=== PATIENT | male | born 1970 | race Caucasian/White ===

== ENCOUNTER 2019-11-01 06:46 | Inpatient (IN) | payer BC ==
[~2019-11-01] VITALS: Ht 182.9 cm; Wt 98.4 kg
--- NOTE | 2019-11-01 07:10 | NUR ---
BIB [facility] FOR C/O SEVERE LOWER BACK PAIN. DENIES TRAUMA. TO ER BED 12, PLACED ON PRONE POSITION AT POSITION OF COMFORT, HOOKED TO MONITOR, PROVIDED W WARM BLANKET, AOx 44, BREATHING EVEN AND UNLABORED, NAD NOTED. AWAITING MD JOHNSTON
--- NOTE | 2019-11-01 07:11 | NUR ---
DR GREENBERG AT BEDSIDE
[2019-11-01] MEDS ORDERED: KETOROLAC TROMETHAMINE INJ 30 MG/ML VIAL IM ONE (07:30)
[2019-11-01] MEDS ORDERED: ONDANSETRON 4 MG TAB.RAPDIS SL ONE (07:30)
[2019-11-01] MEDS ORDERED: HYDROMORPHONE 1 MG/1 ML DISP.SYRIN IM ONE ×2 (07:30→09:00)
[2019-11-01] MEDS ORDERED: KETOROLAC TROMETHAMINE INJ 30 MG/ML VIAL ONE ×2 (07:32→07:39)
[2019-11-01] MEDS ORDERED: HYDROMORPHONE 1 MG/1 ML DISP.SYRIN ONE ×3 (07:32→10:06)
[2019-11-01] MEDS ORDERED: ONDANSETRON 4 MG TAB.RAPDIS ONE (07:32)
--- NOTE | 2019-11-01 09:00 | NUR ---
PATIENT STILL ON 8/10 PS AFTER 1ST DOSE OF DILAUDID. MADE MD AWARE.
[2019-11-01 10:00] LABS: BASOPHILS % (AUTO) 0.4 % (0.0-2.0); EOSINOPHILS % (AUTO) 0.9 % (0.0-6.0); HEMATOCRIT 44 % (39-51); HEMOGLOBIN 15.2 g/dL (13.5-17.5); LYMPHOCYTES # (AUTO) 1.7 /CMM (0.8-4.8); LYMPHOCYTES % (AUTO) 31.5 % (20.0-44.0); MEAN CORPUSCULAR HGB CONC 34 g/dl (31.0-36.0); MEAN CORPUSCULAR VOLUME 94 fL (80-96); MONOCYTES # (AUTO) 0.4 /CMM (0.1-1.30); MONOCYTES % (AUTO) 7.3 % (2.0-12.0); NEUTROPHILS # (AUTO) 3.2 /CMM (1.8-8.9); NEUTROPHILS % (AUTO) 59.9 % (43.0-81.0); PLATELET COUNT (AUTO) 253 /CMM (150-450); RED BLOOD CELL COUNT(AUTO) 4.72 MIL/uL (4.5-6.0); WHITE BLOOD COUNT (AUTO) 5.3 K/uL (4.3-11.0)
--- NOTE | 2019-11-01 10:02 | NUR ---
MOVE SHEET TURNED IN
[2019-11-01 10:08] LABS: CALCIUM, SERUM 9.4 mg/dL (8.5-10.1); CREATININE 0.8 mg/dL (0.6-1.3); POTASSIUM 3.9 mmol/L (3.5-5.1)
--- NOTE | 2019-11-01 10:13 | NUR ---
PATIENT STILL ON 05/19 PS, MADE MD AWARE, VERBAL ORDER OF DILAUDID 1MG IVP RECEIVED. CARRIED OUT.
--- NOTE | 2019-11-01 10:27 | NUR ---
wheeled out via rney for ct scan
[2019-11-01] MEDS ORDERED: HYDROMORPHONE 1 MG/1 ML DISP.SYRIN IV ONE (11:00)
--- NOTE | 2019-11-01 13:20 | NUR ---
GOT BED 208-1
--- NOTE | 2019-11-01 13:26 | NUR ---
REPORT GIVEN TO CAMRYN BOUDREAUX FOR CLAUDIO
--- NOTE | 2019-11-01 14:20 | NUR ---
RN MS NOTES RECEIVED PT FROM E.R. STAFF VIA ADALID, PT IS AWAKE, ALERT AND ORIENTED, PREFERS TO LIE PRONE IN BED AT THIS TIME, STATED THAT IF HE MOVES THE PAIN WILL BE WORSE, ACCOMPANIED BY OTIS, ASSISTED PT TO BED, MADE COMFORTABLE, ROOM SET UP ORIENTATION PROVIDED TO PT, VERBALIZED UNDERSTANDING, AWAITING ADMITTING ORDERS FROM .
[2019-11-01] MEDS: HYDROMORPHONE INJ 2 MG/ML DISP.SYRIN IV PRN ×3 (15:48→23:15)
[2019-11-01] MEDS ORDERED: Z GUARD REMEDY 2 OZ OINT TP PRN (16:00)
[2019-11-01] MEDS ORDERED: ACETAMINOPHEN 325 MG TABLET PO PRN (16:00)
[2019-11-01] MEDS ORDERED: HYDROCODONE/APAP 5/325MG 1 EACH TABLET PO PRN (16:00)
[2019-11-01] MEDS ORDERED: HYDROMORPHONE INJ 2 MG/ML DISP.SYRIN IV PRN (16:00)
[2019-11-01] MEDS ORDERED: MAGNESIUM HYDROXIDE 30 ML UDC PO PRN (16:00)
[2019-11-01] MEDS ORDERED: MAG HYDROX/AL HYDROX/SIMETH 30 ML UDC PO PRN (16:00)
[2019-11-01] MEDS ORDERED: ONDANSETRON HCL/PF 4 MG/2 ML VIAL IVP PRN (16:00)
[2019-11-01] MEDS: methylPREDNISolone SOD SUCC 125 MG/2ML VIAL IV SCH ×3 (17:00→20:08)
--- NOTE | 2019-11-01 17:00 | NUR ---
RN MS NOTES SOLUMEDROL ADMINISTERED ORDERED.
[2019-11-01] MEDS: METHOCARBAMOL (500MG) 500 MG TABLET PO SCH ×2 (17:50→23:15)
--- NOTE | 2019-11-01 18:33 | NUR ---
RN MS NOTES PT IN BED, PAIN MEDS GIVEN ORDERED, COMFORTABLE AT THIS TIME, AT BEDSIDE, SEEN BY DR. FOLEY, NEW ORDERS GIVEN, PLAN OF CARE DISCUSSED WITH PT AND , VERBALIZED UNDERSTANDING, DR. NOBLES WILL REFER PT TO A PAY STATION COLLECTOR ON DISCHARGE PER PT'S INSURANCE COVERAGE, KEPT PT COMFORTABLE, NEEDS ATTENDED.
[2019-11-01] MEDS: KETOROLAC TROMETHAMINE INJ 30 MG/ML VIAL IV SCH (19:06)
[2019-11-01 22:44] VITALS: BP 113/74
[2019-11-02] MEDS ORDERED: KETOROLAC TROMETHAMINE INJ 30 MG/ML VIAL ONE (02:22)
[2019-11-02] MEDS: KETOROLAC TROMETHAMINE INJ 30 MG/ML VIAL IV SCH ×3 (02:28→16:33)
[2019-11-02] MEDS: HYDROMORPHONE INJ 2 MG/ML DISP.SYRIN IV PRN ×5 (03:24→22:13)
[2019-11-02] MEDS: METHOCARBAMOL (500MG) 500 MG TABLET PO SCH ×3 (06:21→17:24)
[2019-11-02 06:26] LABS: BASOPHILS % (AUTO) 0.1 % (0.0-2.0); HEMATOCRIT 43 % (39-51); HEMOGLOBIN 14.7 g/dL (13.5-17.5); LYMPHOCYTES # (AUTO) 0.8 /CMM (0.8-4.8); LYMPHOCYTES % (AUTO) 13.4 % (20.0-44.0); MEAN CORPUSCULAR HGB CONC 34 g/dl (31.0-36.0); MEAN CORPUSCULAR VOLUME 92 fL (80-96); MONOCYTES % (AUTO) 0.6 % (2.0-12.0); NEUTROPHILS % (AUTO) 85.9 % (43.0-81.0); PLATELET COUNT (AUTO) 263 /CMM (150-450); RED BLOOD CELL COUNT(AUTO) 4.67 MIL/uL (4.5-6.0); WHITE BLOOD COUNT (AUTO) 5.8 K/uL (4.3-11.0)
[2019-11-02 06:34] LABS: CREATININE 0.8 mg/dL (0.6-1.3); MAGNESIUM 1.9 mg/dL (1.8-2.4); PHOSPHORUS 4.8 mg/dL (2.5-4.9); POTASSIUM 4.3 mmol/L (3.5-5.1)
--- NOTE | 2019-11-02 07:10 | NUR ---
MS RN OPENING NOTES RECEIVED PATIENT IN BED ASLEEP, AROUSABLE TO VERBAL AND TACTILE STIMULI. NO SOB. DENIES ANY C/O PAIN NOR DISCOMFORT AT THIS TIME. AT BEDSIDE. RT HAND # 18 SL INTACT AND PATENT. BED IN LOWEST POSITION, LOCKED. BED ALARM ON. CALL LIGHT WITHIN REACH.
[2019-11-02 08:00] VITALS: BP 100/53
[2019-11-02] MEDS: methylPREDNISolone SOD SUCC 125 MG/2ML VIAL IV SCH ×4 (09:06→20:30)
[2019-11-02] MEDS: HYDROCODONE/APAP 10/325MG 1 EA TABLET PO PRN ×2 (10:02→16:25)
[2019-11-02 16:00] VITALS: BP 112/64
--- NOTE | 2019-11-02 19:14 | NUR ---
MS RN CLOSING NOTES PATIENT RESTING COMFORTABLY IN BED. NO SOB. PAIN MED GIVEN ORDERED. AT BEDSIDE. RT HAND # 18 SL INTACT AND PATENT. PATIENT PREFERS TO BE IN PRONE POSITION BECAUSE IT ALLEVIATES BACK PAIN. AWAITING FOR [facility] ACCEPTANCE FOR PAIN MANAGEMENT. BED IN LOWEST POSITION, LOCKED. BED ALARM ON. CALL LIGHT WITHIN REACH. IN NO APPARENT DISTRESS.
--- NOTE | 2019-11-02 19:30 | NUR ---
[employer]REET[employer] REPAIRER HELPER: MET WITH PT AND PT'S AT BED SIDE. PT IS A/O X4, ON RA RESPIRATIONS EVEN AND UNLABORED. STATED PT'S PAIN WENT DOWN TO 7-8/10 AFTER DILAUDID IV. PT UNABLE TO GET UP, AMBULATE DUE TO SEVERE PAIN ON HIS BACK, UNABLE TO PERFORM MOST OF ADLS DUE TO INTRACTABLE PAIN. SEEN BY PAIN MD, AND HOSPITALIST. AWAITING TRANSFER TO [facility] FOR HLOC. IV ACCESS PATENT AND FLUSHING WELL, ON HL. DISCUSSED PLAN OF CARE, ANSWER QUESTIONS/CONCERNS BASED ON PLAN OF CARE OF MD AND LATEST IMAGING/LAB RESULT, AND MEDICATION ORDERS. SAFETY PRECAUTIONS FOR FALL INITIATED, URINAL AND CALL LIGHT WITHIN REACH, WILL CONTINUE MONITORING PT.
[2019-11-02 20:00] VITALS: BP 101/63
--- NOTE | 2019-11-02 22:19 | NUR ---
PRN DILAUDID: PT C/O 05/19 CHRONIC UPPER AND LOWER BACK PAIN REQUESTING FOR HIS DILAUDID IV. PRN DILAUDID 2MG IVP ADMINISTERED TO PT AT THIS TIME. EDUCATION PROVIDED REGARDING MEDICATION MIRI EFFECT AND ACTIONS.
[2019-11-02 23:07] VITALS: BP 101/46
[2019-11-02] MEDS: ZOLPIDEM TARTRATE 5 MG TABLET PO PRN (23:08)
--- NOTE | 2019-11-02 23:12 | NUR ---
PRN AMBIEN: PT REPORTED HE REALLY WANTS TO SLEEP, BUT UNABLE TO SLEEP, ONLY 15MINS THEN WOKE UP IN PAIN, DESPITE GIVING ALL PRN PAIN MEDS AND SCHEDULE PAIN MEDS ORDERED. PT REQUESTING FOR SLEEPING AID, VS TAKEN AND RECORDED. PRIOR TO ADMINISTERING MEDICATIONS. PRN AMBIEN 5MG TAB PO ADMINISTERED TO PT AT THIS TIME. WILL CONTINUE TO MONITOR AND REASSESS PT.
[2019-11-03] MEDS: METHOCARBAMOL (500MG) 500 MG TABLET PO SCH ×5 (00:15→23:16)
--- NOTE | 2019-11-03 01:29 | NUR ---
RN NOTES: WENT OT PT'S ROOM, PT HAS SCHEDULED TORADOL FOR 0130AM, PT FOUND TO BE SLEEPING, SNORING LOUDLY, AT BED SIDE, PER TO LET PT SLEEP FOR NOW AND SHE WILL CALL ONCE PT WAKES UP.
[2019-11-03] MEDS: KETOROLAC TROMETHAMINE INJ 30 MG/ML VIAL IV SCH ×4 (01:30→17:17)
--- NOTE | 2019-11-03 02:20 | NUR ---
RN NOTES: CAME STATED TO PREPARE THE PAIN MEDICATION, STATING HIS HAS LIKE 7-8/ OUT OF 10 PAIN. TOOK THE MEDS FROM [employer]. UPON GETTING TO THE ROOM, PT WAS SLEEPING AND SNORING STILL, TRIED TO WAKE UP PT BUT VERY DROWSY ONE YES VERY LITTLE, AND WENT BACK TO SLEEP. EXPLAINED TO RN CANNOT ADMINISTER THE MEDICATION IF PT IS SLEEPING. UNDERSTAND, STATED SHE WILL JUST CALL ME AGAIN ONCE MORE AWAKE.
[2019-11-03 05:30] VITALS: BP 101/55
[2019-11-03] MEDS: HYDROMORPHONE INJ 2 MG/ML DISP.SYRIN IV PRN ×3 (05:46→20:08)
--- NOTE | 2019-11-03 05:46 | NUR ---
PRN DILAUDID: PT C/O 05/19 LOWER BACK PAIN REQUESTING FOR DILAUDID, PRN DILAUDID 2MG IVP ADMINISTERED TO PT AT THIS TIME. WILL CONTINUE TO MONITOR AND REASSESS
--- NOTE | 2019-11-03 06:58 | NUR ---
END OF SHIFT SUMMARY: PRN PAIN MEDICATIONS ADMINISTERED ORDERED AND PER PT'S REQUEST. AWAITING FOR [facility] AUTHORIZATION NUMBER. IV ACCESS REMAINS PATENT AND FLUSHING WELL, ON HL. NO S/S OF IV INFILTRATION NOTED. VS REMAINS STABLE, NEEDS ATTENDED. SAFETY PRECAUTIONS FOR FALL REMAINS ENGAGED,CALL LIGHT IN REACH, WILL ENDORSE TO DAY RN FOR CONTINUITY OF CARE.
--- NOTE | 2019-11-03 07:00 | NUR ---
MS RN OPENING NOTES RECEIVED PATIENT IN BED LEFT SIDE LYING POSITION WATCHING ON TABLET. NO S/S OF RESPIRATORY DISTRESS. DENIES ANY C/O PAIN NOR DISCOMFORT AT THIS TIME. AT BEDSIDE. LT HAND # 18 SL INTACT AND PATENT. BED IN LOWEST POSITION, LOCKED. BED ALARM ON. CALL LIGHT WITHIN REACH.
[2019-11-03 07:30] VITALS: BP 102/54
[2019-11-03] MEDS: HYDROCODONE/APAP 10/325MG 1 EA TABLET PO PRN ×3 (07:42→23:17)
[2019-11-03] MEDS: methylPREDNISolone SOD SUCC 125 MG/2ML VIAL IV SCH ×4 (09:05→20:08)
--- NOTE | 2019-11-03 13:22 | NUR ---
MS RN NOTES RECEIVED CALL FROM RAPHAEL FROM [facility] DEPT OF PLACEMENT, PER RAPHAEL, " THEY MAY HAVE POSSIBLY HAVE A BED FOR PATIENT." TRANSFER CENTER WILL CONTACT [facility] AND PER RAPHAEL CM WILL ARRANGE TRANSPORTATION. CALLED CM AND SPOKE TO BARBARA AND MADE AWARE.
[2019-11-03] MEDS: DOCUSATE SODIUM LIQ 100 MG/10 ML UDC NG SCH (13:49)
--- NOTE | 2019-11-03 19:10 | NUR ---
MS RN NOTES PATIENT IN BED WATCHING ON TABLET WITH WITH AT BEDSIDE. PATIENT REMAINS STABLE AT THIS TIME. STILL AWAITING FOR BED AVAILABILITY FROM [facility].
[2019-11-03 20:00] VITALS: BP 109/52
[2019-11-03] MEDS: ZOLPIDEM TARTRATE 5 MG TABLET PO PRN (22:19)
[2019-11-04] MEDS: KETOROLAC TROMETHAMINE INJ 30 MG/ML VIAL IV SCH ×3 (00:55→16:31)
[2019-11-04] MEDS ORDERED: METHOCARBAMOL (500MG) 500 MG TABLET ONE (06:38)
[2019-11-04] MEDS: METHOCARBAMOL (500MG) 500 MG TABLET PO SCH ×3 (06:42→17:58)
--- NOTE | 2019-11-04 06:47 | NUR ---
MS RN NOTES ROBAXIN 1000MG TAB GIVEN ORDERED. MEDICATION TAKEN FROM MS 3 PYXIS DUE TO MEDICATION NOT AVAILABLE IN MS2 PYXIS. CHARGE NURSE AWARE.
--- NOTE | 2019-11-04 07:25 | NUR ---
MS RN CLOSING NOTES PATIENT REMAINS ASLEEP IN BED, AROUSABLE TO VERBAL AND TACTILE STIMULI. NO S/S OF RESPIRATORY DISTRESS. DENIES ANY C/O PAIN NOR DISCOMFORT AT THIS TIME. AT BEDSIDE. PATIENT STILL EXHIBITS PAIN DESPITE OF PAIN MEDICATION. MONITORED ACCORDINGLY. LT HAND # 18 SL INTACT AND PATENT. BED IN LOWEST POSITION, LOCKED. BED ALARM ON. CALL LIGHT WITHIN REACH. IN NO APPARENT DISTRESS.
--- NOTE | 2019-11-04 07:31 | NUR ---
MS RN OPENING NOTES RECEIVED PATIENT AWAKE IN BED IN NO ACUTE SIGN OF DISTRESS. AT BEDSIDE. A/O X4, ABLE TO MAKE NEEDS KNOWN, VERBALIZED THAT PAIN IS TOLERABLE AT THIS TIME. ON ROOM AIR, BREATHING EVEN AND UNLABORED. LT HAND # 18 SL INTACT AND PATENT. BED IN LOWEST POSITION AND LOCKED WITH SR UP X2. BED ALARM ON. CALL LIGHT WITHIN REACH. WILL CONTINUE TO MONITOR .
[2019-11-04 08:00] VITALS: BP 113/73
[2019-11-04] MEDS: methylPREDNISolone SOD SUCC 125 MG/2ML VIAL IV SCH ×3 (08:22→16:30)
[2019-11-04] MEDS: DOCUSATE SODIUM LIQ 100 MG/10 ML UDC NG SCH (08:22)
[2019-11-04] MEDS ORDERED: METH500T6 PO (09:12)
[2019-11-04] MEDS ORDERED: IBUP-1958 PO (09:12)
[2019-11-04] MEDS ORDERED: PRED50TA PO ×2 (09:12→12:40)
[2019-11-04] MEDS ORDERED: HYDR-4354 PO ×2 (09:12→12:40)
--- NOTE | 2019-11-04 12:01 | NUR ---
RN NOTES RECEIVED CALL FROM KANIKA ZARAGOZA FROM [facility] TRANSFER CENTER, [facility] THAT PT HAS BED AVAILABLE ALREADY. PT WILL BE IN UNIT 4MN ROOM 4448. [facility]CANO INFORMED AND ARRANGED TRANSPORTATION FOR 1700 PICK-UP. CALLED UNIT 4MN AT TEL # IS [phone] AND REPORT GIVEN TO KANIKA JIN. PT'S AT BEDSIDE AND MADE AWARE OF PT'S TRANSFER.
[2019-11-04] MEDS ORDERED: METH-406 PO (12:40)
[2019-11-04] MEDS ORDERED: IBUP-1957 PO (12:40)
[2019-11-04] MEDS: HYDROMORPHONE INJ 2 MG/ML DISP.SYRIN IV PRN (14:30)
--- NOTE | 2019-11-04 14:33 | NUR ---
RN NOTES/PAIN MANAGEMENT PT IN BED AND C/O LOWER BACK PAIN WITH SCALE OF 8/10. PRN DILAUDID 2MG/1ML IVP ADMINISTERED AT 1430. WILL CONTINUE TO MONITOR AND REASSESS PT.
--- NOTE | 2019-11-04 19:20 | NUR ---
MS/RN NOTES RECEIVED PT. LYING IN BED. PT. IS RESTING, EASILY AROUSABLE TO NAME. AWAKE, ALERT AND ORIENTED X4. BREATHING EVEN AND UNLABORED ON ROOM AIR. NO SOB, RESPIRATORY DISTRESS OR COMPLAINTS OF PAIN NOTED AT THIS TIME. PT. WITH LEFT HAND 18 GAUGE IV SALINE LOCK PRESENT, PATENT AND INTACT. PT. PRESENT AT BEDSIDE. PER DAYSHIFT NURSE PT. IS PENDING DISCHARGE TO [facility] FOR HIGHER LEVEL OF CARE. PER DAYSHIFT NURSE PT. DISCHARGE PAPERWORK, EXIT CARE AND BELONGINGS LIST COMPLETED AND SIGNED. ORIGINALS PLACED IN PT. CHART. PER DAYSHIFT NURSE PICKUP TIME 1900. BED LOCKED AND IN LOWEST POSITION, SIDE RAILS UP X2, CALL LIGHT WITHIN REACH, WILL CONTINUE TO MONITOR.
--- NOTE | 2019-11-04 19:26 | NUR ---
MS RN CLOSING NOTES PATIENT ASLEEP IN BED AT THIS TIME, EASILY AROUSABLE. AT BEDSIDE. PT IS A/O X4. ABLE TO MAKE NEEDS KNOWN. ON ROOM AIR, TOLERATING WELL WITH NO ACUTE RESPIRATORY DISTRESS NOTED THROUGHOUT THE DAY. LT HAND # 18 SL INTACT AND PATENT. BED IN LOWEST POSITION, LOCKED. BED ALARM ON. CALL LIGHT WITHIN REACH. ALL NEEDS AND CARE ATTENDED WELL. PT FOR DISCHARGE TONIGHT TO [facility]. PER [facility]UDY TOSCANO, TRANSPORT IS DELAYED. AT BEDSIDE INFORMED. ENDORSED TO FACT CHECKER NURSE JOSE ALFREDO.
[2019-11-04 20:00] VITALS: BP 124/65
--- NOTE | 2019-11-04 20:01 | NUR ---
MS/RN NOTES PT. IS LYING IN BED. PT. IS AWAKE, ALERT AND ORIENTED X 4. VITAL SIGNS STABLE. PT. WILL BE DISCHARGED TO [facility] FOR HIGHER LEVEL OF CARE. PT. IV ACCESS NOT REMOVED PER RN OF [facility]. DISCHARGE PER DAYSHIFT NURSE INSTRUCTIONS AND REPORT GIVEN TO [facility] RN DAVIN. PT LEFT UNIT AT 2000 VIA GURNEY ACCOMPANIED BY 2 EMT'S AND PT'S .
[2019-11-04 20:45] VITALS: BP 124/65
== END 2019-11-04 20:01 | disposition short-term general hospital (02) | DRG 552 ==
LOC: ER 06:46 → MEDSG2 13:58
PROVIDERS: ADMIT Internal Medicine; ATTEND Internal Medicine
DX: M48.07 Spinal stenosis, lumbosacral region (principal); M43.17 Spondylolisthesis, lumbosacral region; G89.4 Chronic pain syndrome; M54.30 Sciatica, unspecified side
CPT/HCPCS: 36415; 72131-TC; 80048-TC; 83735-TC; 84100-TC; 85025-TC; 87081-TC; 97116-TC; 97530-TC; 97535-TC; G0378; J1170; J1885; J2405; J2930; Q0162